=== PATIENT | male | born 1970 | race Caucasian/White ===

== ENCOUNTER 2018-03-15 21:12 | Emergency (ER) | payer SELFPAY ==
[~2018-03-15] VITALS: Ht 172.7 cm; Wt 110.0 kg
[2018-03-15] MEDS ORDERED: amoxicillin 250mg capsule PO ONE (22:00)
[2018-03-15] MEDS ORDERED: acetaminophen 325mg tablet PO ONE (22:00)
[2018-03-15] MEDS ORDERED: AMOX500C2 PO (22:02)
[2018-03-15 22:10] VITALS: BP 156/98
[2018-03-16] MEDS ORDERED: CLIN300C85 PO (04:44)
== END 2018-03-15 22:19 | disposition home or self-care (01) ==
LOC: ER 21:13
DX: K08.89 Other specified disorders of teeth and supporting structures (principal); R22.0 Localized swelling, mass and lump, head; R51 Headache; Z56.0 Unemployment, unspecified
CPT/HCPCS: 99283

== ENCOUNTER 2018-03-16 03:13 | Emergency (ER) | payer SELFPAY ==
[~2018-03-16] VITALS: Ht 172.7 cm; Wt 97.0 kg
[~2018-03-16 03:13] MED LIST: AMOX500C2 PO
[2018-03-16] MEDS ORDERED: methylPREDNISolone sod succ 125mg/2ml vial IV ONE (03:30)
[2018-03-16] MEDS ORDERED: CLINDAmcin 900mg/NS 50ml IVPB 50 ML IV ONE (03:30)
[2018-03-16] MEDS ORDERED: normal saline 1000ml 1,000 ML IV ONE (03:40)
[2018-03-16] MEDS ORDERED: iohexol 300mg/ml 100ml inj. ONE (03:43)
[2018-03-16 04:16] VITALS: BP 143/98
[2018-03-16 04:28] LABS: BASOPHILS % (AUTO) 0.5 % (0-1); EOSINOPHILS # (AUTO) 0.2 X10'3 (0-0.9); EOSINOPHILS % (AUTO) 2.8 % (0-6); HEMATOCRIT 39.6 % (42.0-52.0); HEMOGLOBIN 13.6 g/dl (14.0-17.9); LYMPHOCYTES # (AUTO) 1.8 X10'3 (1.1-4.8); LYMPHOCYTES % (AUTO) 22.4 % (21-51); MEAN CORPUSCULAR HGB CONC 34.4 % (33.0-36.5); MEAN CORPUSCULAR VOLUME 84.1 FL (78-98); MEAN PLATELET VOLUME 8.3 FL (7.4-10.4); MONOCYTES # (AUTO) 0.7 X10'3 (0-0.9); MONOCYTES % (AUTO) 9.1 % (2-12); NEUTROPHILS # (AUTO) 5.2 X10'3 (1.8-7.7); NEUTROPHILS % (AUTO) 65.2 % (42-75); PLATELET COUNT 206 X10'3 (140-440); RED BLOOD COUNT 4.71 X10'6 (4.70-6.10); RED CELL DISTRIBUTION WIDTH 13.3 % (11.5-14.5)
[2018-03-16 04:34] LABS: ALANINE AMINOTRANSFERASE 32 U/L (12-78); ALBUMIN 3.2 G/DL (3.4-5.0); ALKALINE PHOSPHATASE 121 IU/L (46-116); ANION GAP 9 (8-16); ASPARTATE AMINO TRANSFERASE 13 U/L (10-37); BILIRUBIN,TOTAL 0.4 MG/DL (0.1-1.0); BLOOD UREA NITROGEN 12 MG/DL (7-18); BUN/CREATININE RATIO 9.8 (5.4-32.0); CALCIUM 7.6 MG/DL (8.5-10.1); CHLORIDE 105 MMOL/L (99-107); CREATININE 1.22 MG/DL (0.60-1.10); GLUCOSE 155 MG/DL (70-104); POTASSIUM 3.5 MMOL/L (3.5-5.1); SODIUM 142 MMOL/L (135-145); TOTAL CARBON DIOXIDE 27.7 MMOL/L (24-32); TOTAL PROTEIN 6.4 G/DL (6.4-8.2); eGFR 64 ML/MIN
[2018-03-16] MEDS ORDERED: CLIN300C85 PO (04:44)
== END 2018-03-16 04:52 | disposition home or self-care (01) ==
LOC: ER 03:15
DX: R22.0 Localized swelling, mass and lump, head (principal); Z79.2 Long term (current) use of antibiotics; Z56.0 Unemployment, unspecified
CPT/HCPCS: 36415; 70487; 80053; 85025; 96365; 96375; 99285; J2930; Q9967; J3490